=== PATIENT | female | born 1990 | race Caucasian/White ===

== ENCOUNTER 2024-01-23 08:32 | Emergency (ER) | payer OTHER ==
--- OUTSIDE RECORDS SUMMARY | 2024-01-23 08:34 | XMS REPORT | Continuity of Care Document ---
Author Name Unknown Address [address] [facility] [address]. [address] [place] [address] [facility] thconnect Address [address] [facility]. [address] [place] [address] Care Team Providers Care Roof Shingler Name Role Phone NIKHIL CESAR Primary Care Physician Unavailab Shari Garces Attending Clinician Unavail able Stephanie RUIZ Attending Clinician Unavailable Nikhil Cesar Attending Clinician Unavailable Nurse, [facility] Attending Clinician Unadigna Nunes RN, Rosey Patel Attending Clinician Unavailab Gabby Paz RN Attending Clinician UnavailMORENO Chavira Attending Clinician Unavail able Provider, [facility] Attending Clinician Un available Moreno Mooney MD Attending Clinician IVAN JACOBSEN Attending Clinician Unavailable IVAN JACOBSEN Admitting Clinician Unavailable LISE FRANCES Admitting Clinician Unavailable Payers Payer Name Policy Type Policy Number Effective Date Expirati on Date Source [facility] AARP MCR Advantage (HMO-POS) [id number] [facility] Problems Condition Name Condition Details Condition Category Status Onset Date Resolution Date Last Treatment Date Treating Clinician Comments Source [id number] Primary amenorrhea Problem [facility] [id number] Legally blind Problem [facility] [id number] Idiopathic intellectu al disability Problem [facility] [id number] Autism spectrum disorder Problem [facility] Blindness AND/OR vision impairment level (disorder) Blindness and low vision Problem [facility] Adult health examinatio n Well adult exam Problem [facility] [id number] Annual physical exam Problem [facility] Acquired hypothyroi dism Acquired hypothyroi dism Problem [facility] Allergic rhinitis Allergic rhinitis Problem [facility] Decreased vision Decreased vision Problem [facility] Vitamin D deficiency Vitamin D deficiency Problem [facility] [id number] Elevated liver enzymes Problem [facility] [id number] Low HDL (under 40) Problem [facility] No known active problems No known active problems Disease [facility] Allergies, Adverse Reactions, Alerts Allergy Name Allergy Type Status Severity Reaction(s) Onset Date Inactive Date Treating Clinician Comments Source AMOXICIL RAVI-POT CLAVULAN ATE DRUG Active Rash 10-29 00:00: 00 [facility] Amoxicil ravi-Pot Clavulan ate Propensi ty to adverse reaction s Active Rash 10-29 00:00: 00 [facility] amoxicil ravi / clavulan ate amoxicil ravi / clavulan ate Active Unknown [facility] Social History Social Habit Start Date Stop Date Quantity Comments Source History of Tobacco Use [facility] Sex Assigned At [facility] Exposure to SARS-CoV-2 (event) Not sure [facility] Tobacco use and exposure 2020-11-24 00:00:00 2020-11-24 00:00:00 Never used [facility] Smoking Status Start Date Stop Date Source Never Smoker [facility] Medications Ordered Medication Name Filled Medication Name Start Date Stop Date Current Medication? Ordering Clinician Indication Dosage Frequency Signature (SIG) Comments Components Source ondansetron 4 mg tablet 11-24 00:00: 00 Yes [id number] 4mg Take 1 tablet by mouth every 6 (six) hours as needed for Nausea and Vomiting (N/V). [facility] methylPREDN ISolone (MEDROL, JADE,) 4 mg tablets 04-24 00:00: 00 Yes [id number] Take by mouth SEE-INSTRU CTIONS. follow package directions [facility] traMADol 50 mg tablet 04-19 00:00: 00 Yes [id number] 50mg Take 1 tablet by mouth every 6 (six) hours as needed for Pain (scale 4-6) or Pain (scale 7-10). [facility] ciprofloxac in HCl 500 mg tablet 04-19 00:00: 00 Yes [id number] 500mg Take 1 tablet by mouth 2 (two) times daily. [facility] ondansetron (ZOFRAN ODT) 4 mg disintegrat ing tablet 04-19 00:00: 00 Yes [id number] 4mg Take 1 tablet by mouth every 8 (eight) hours as needed for Nausea and Vomiting (N/V) for up to 20 doses. [facility] Levothyroxi ne Sodium 25 MCG Levothyroxi ne Sodium 25 MCG No QD Levothyrox ine Sodium 25 MCG Flintstones Plus Iron - Flintstones Plus Iron - No 1{table t} QD [place] s Plus Iron - Acidophilus Probiotic Blend - Acidophilus Probiotic Blend - No Acidophilu s Probiotic Blend - Euthyrox 25 MCG Euthyrox 25 MCG No QD Euthyrox 25 MCG Immunizations Ordered Immunization Name Filled Immunization Name Date Status Comments Source Afluria single dose Afluria single dose 15:30:00 Completed [facility] Afluria single dose Afluria single dose 15:30:00 Completed [facility] Afluria single dose Afluria single dose 15:30:00 Completed [facility] Afluria single dose Afluria single dose 00:00:00 Completed [facility] Afluria Afluria 2018-03-23 16:19:00 Completed [facility] Afluria Afluria 2018-03-23 16:19:00 Completed [facility] Afluria Afluria 2018-03-23 16:19:00 Completed [facility] Afluria Afluria 2017-05-21 12:54:00 Completed [facility] Afluria Afluria 2017-05-21 12:54:00 Completed [facility] Afluria Afluria 2017-05-21 12:54:00 Completed [facility] Afluria single dose Afluria single dose Unknown Completed [facility] Afluria Afluria Unknown Completed [facility] Afluria Afluria Unknown Completed [facility] Afluria (IIV4) - 3 years and older - SDS - 0.5mL Afluria (IIV4) - 3 years and older - SDS - 0.5mL Unknown Completed [facility] Afluria Afluria Unknown Completed [facility] Afluria Afluria Unknown Completed [facility] Vital Signs Vital Name Observation Time Observation Value Comments S ource height 2023-09-22 10:40:00 61 [in_i] [facility] weight 2023-09-22 10:40:00 126 [lb_av] Comm on [facility] temperature 2023-09-22 10:40:00 98.1 [degF] Com [facility] bmi 2023-09-22 10:40:00 23.8 kg/m2 Comm n [facility] oximetry 2023-09-22 10:40:00 99 % [facility] respiratory rate 2023-09-22 10:40:00 18 /min [facility] blood pressure systolic 2023-09-22 10:40:00 134 mm[Hg] [facility] blood pressure diastolic 2023-09-22 10:40:00 70 mm[Hg] [facility] height 2022-01-28 09:20:00 61.50 [in_i] Com [facility] weight 2022-01-28 09:20:00 121 [lb_av] Comm on [facility] temperature 2022-01-28 09:20:00 98.1 [degF] Com [facility] bmi 2022-01-28 09:20:00 22.49 kg/m2 Comm on [facility] height 2021-05-16 11:00:00 61.50 [in_i] Com [facility] weight 2021-05-16 11:00:00 120 [lb_av] Comm on [facility] temperature 2021-05-16 11:00:00 97.8 [degF] Com [facility] bmi 2021-05-16 11:00:00 22.30 kg/m2 Comm on [facility] oximetry 2021-05-16 11:00:00 100 % [facility] blood pressure systolic 2021-05-16 11:00:00 132 mm[Hg] [facility] blood pressure diastolic 2021-05-16 11:00:00 72 mm[Hg] [facility] height 2021-05-16 11:00:00 61.50 [in_i] Com [facility] weight 2021-05-16 11:00:00 120 [lb_av] Comm on [facility] temperature 2021-05-16 11:00:00 97.8 [degF] Com [facility] bmi 2021-05-16 11:00:00 22.30 kg/m2 Comm [facility] oximetry 2021-05-16 11:00:00 100 % [facility] respiratory rate 2021-05-16 11:00:00 16 /min [facility] blood pressure systolic 2021-05-16 11:00:00 132 mm[Hg] [facility] blood pressure diastolic 2021-05-16 11:00:00 72 mm[Hg] [facility] Systolic blood pressure 2020-11-24 17:04:00 111 mm[Hg] [facility] Diastolic blood pressure 2020-11-24 17:04:00 76 mm[Hg] [facility] Heart rate 2020-11-24 16:58:00 99 /min [facility] Body temperature 2020-11-24 16:58:00 37.17 Ashlee [facility] Respiratory rate 2020-11-24 16:58:00 18 /min [facility] Body height 2020-11-24 16:58:00 160 cm [facility] Body weight 2020-11-24 16:58:00 58.968 kg [facility] BMI 2020-11-24 16:58:00 23.03 kg/m2 [facility] Oxygen saturation in Arterial blood by Pulse oximetry 2020-11-24 16:58:00 100 /min [facility] Procedures Procedure Date / Time Performed Performing Clinicia n Source POCT GRP A STREP (MOLECULAR) 2020-11-24 17:24:00 Arya Lott [facility] Encounters Start Date/Time End Date/Time Encounter Type Admission Type Attending Clinicians Care Facility Care Department Encounter ID Source 2023-09-22 10:55:00 Outpatient Shari [facility] [id number] [facility] 2023-09-20 14:40:00 Outpatient [facility] Stephanie [facility] [id number] [facility] 2023-09-14 16:37:00 Outpatient [facility]MM Stephanie [facility] [id number] [facility] 2022-06-29 14:30:00 Outpatient Umm Stephanie [facility] [id number] [facility] 2022-01-26 07:56:00 Outpatient Nikhil Cesar [facility] [id number] [facility] 2021-05-14 14:21:14 Outpatient Cesar, Na [facility]C ST[facility] [id number] [facility] 2021-05-14 12:11:22 Outpatient Cesar, Na [facility]C ST[facility] [id number] [facility] 2021-05-14 11:49:01 Outpatient Judith Na [facility] ST[facility] [id number] [facility] 2021-05-14 11:44:53 Outpatient Judith, Na [facility] [id number] [facility] 2021-05-14 11:26:17 Outpatient Judith, Na [facility]C ST[facility] [id number] [facility] 2021-05-14 11:17:21 Outpatient Judith Na [facility] ST[facility]C [id number] [facility] 2021-05-14 11:00:46 Outpatient Judith, Na STL[facility]C ST[facility]C [id number] [facility] 2023-09-22 00:00:00 2023-09-22 00:00:00 OFFICE VISIT NEW PT LEVEL 3 [facility]C ST[facility]C [id number] [facility] 2023-09-22 00:00:00 2023-09-22 00:00:00 SUB ANNUAL [facility] VISIT [facility]C STL[facility]C [id number] [facility] 2023-09-14 00:00:00 2023-09-14 00:00:00 (TEL) STLMLC STL[facility]C [id number] [facility] 2022-09-02 10:20:53 2022-09-02 10:20:53 Outpatient SFA SFA [id number] Desmond Beltrán Venu 2022-08-17 00:00:00 2022-08-17 00:00:00 (TEL) STLMLC STL[facility]C [id number] [facility] 2022-01-28 00:00:00 2022-01-28 00:00:00 OFFICE VISIT EST PT LEVEL 3 [facility]C STL[facility]C [id number] [facility] 2022-01-16 00:00:00 2022-01-16 00:00:00 (TEL) STLMLC STL[facility]C [id number] [facility] 2021-05-16 00:00:00 2021-05-16 00:00:00 SUB ANNUAL [facility] VISIT STLMLC STLMLC [id number] [facility] 2021-05-16 00:00:00 2021-05-16 00:00:00 OFFICE VISIT EST PT LEVEL 3 [facility] STLC [id number] [facility] 2020-12-01 00:00:00 2020-12-01 00:00:00 Telephone Nurse, Steven [facility] 1..[id number] [facility] 2020-11-25 00:00:00 2020-11-25 00:00:00 Letter (Out) Rosey Nunes [facility] 1..[id number] [facility] 2020-11-25 00:00:00 2020-11-25 00:00:00 Telephone Gabby Benavides [facility] 1..[id number] [facility] 2020-11-24 12:20:00 2020-11-24 12:20:00 Outpatient R ANGELA MOONEYKIRA [facility] [id number] [facility] 2020-11-24 11:44:50 2020-11-24 12:04:50 [facility] 1..[id number] [facility] 2020-03-28 00:00:00 2020-03-28 00:00:00 Outpatient [facility] [id number] [facility] 2020-01-01 16:00:00 2020-01-01 16:00:00 [facility] [id number] [facility] 2019-10-03 16:00:00 2019-10-03 16:00:00 [facility] [id number] [facility] 2019-07-03 15:00:00 2019-07-03 15:00:00 [facility] [id number] [facility] 2019-05-03 11:40:00 2019-05-03 11:40:00 [facility] [id number] [facility] 2019-04-24 07:26:18 2019-04-24 12:09:00 Emergency X IVAN JACOBSEN [facility] ERT [id number] [facility] 2019-04-19 09:55:43 2019-04-19 15:16:00 Emergency X [facility] ERT [id number] [facility] 2019-04-02 02:26:00 2019-04-02 02:26:00 [facility] [id number] [facility] 2019-03-28 14:40:00 2019-03-28 14:40:00 [facility] [place] [facility] [id number] [facility] Results Test Description Test Time Test Comments Results Result Co mments Source [facility]
[2024-01-23 09:09] LABS: Absolute Eosinophils 0.1 K/uL (0-0.5); Absolute Lymphocytes (CBC) 2.1 K/uL (0.7-4.9); Absolute Monocytes 0.3 K/uL (0.1-1.3); Absolute Neutrophil 2.7 K/uL (1.8-8.0); Basophils % 0.8 % (0-1.3); Eosinophils % 2.4 % (0-4.4); Hematocrit 37.6 % (36.0-45.0); Hemoglobin 12.8 g/dL (12.0-15.0); Lymphocytes % 38.9 % (15.3-44.8); MCH 30.5 pg (27.0-35.0); MCHC 34.2 g/dL (32.0-36.0); MCV 89.2 fL (80-100); MPV 7.9 fL (7.6-11.3); Monocytes % 6.2 % (3.3-12.3); Neutrophils % 51.7 % (41.7-73.7); Platelets 196 thou/uL (152-406); RBC Red Blood Cell Count 4.22 M/uL (3.86-4.86)
[2024-01-23 09:53] LABS: Albumin 4.3 g/dL (3.4-5.0); Albumin/Globulin Ratio 1.2 (1.1-1.8); Bilirubin Total 0.7 mg/dL (0.2-1.0); Globulin 3.7 g/dL (2.3-3.5)
[2024-01-23 10:39] LABS: Specific Gravity 1.023 (1.005-1.030)
[2024-01-23 10:40] LABS: Specific Gravity 1.023 (1.005-1.030); Sqamous Epithelial <5 /HPF (None Seen); Transitional Epithelial <5 /HPF (None Seen); Urine Bacteria None Seen /HPF (<20); Urine Bilirubin NEGATIVE (Negative); Urine Blood 1+ (Negative); Urine Clarity Clear (Clear); Urine Color Light-Yellow (Yellow); Urine Culture Reflex Order NOT NEEDED; Urine Glucose NEGATIVE (Negative); Urine Ketones 3+ (Negative); Urine Microscopic Reflex YN ORDER UMIC; Urine Mucus Slight /HPF (None Seen); Urine Nitrite NEGATIVE (Negative); Urine Protein TRACE (Negative); Urine Urobilinogen Normal (Normal); Urine WBC <5 /HPF (<5)
[2024-01-23] MEDS ORDERED: ONDANSETRON 4 MG/2 ML VIAL ONE (11:05)
--- NOTE | 2024-01-23 11:14 | RAD REPORT ---
EXAMINATION: CT Abdomen Pelvis W Contrast CLINICAL INDICATION: Female, 33 years old. ABD PAIN TECHNIQUE: CT abdomen and pelvis was performed, after the administration of IV contrast, as per [facility] protocol. Axial, sagittal and coronal reconstructions were obtained. One or more of the following dose reduction techniques were used: Automated exposure control, adjustment of the mA and k V according to patient size, and iterative reconstruction. Unless otherwise specified, incidental findings do not require dedicated imaging follow-up. COMPARISON: No prior exam. FINDINGS: LOWER CHEST: The visualized lung bases are clear. LIVER: Normal in size and contour. No focal lesion. BILIARY SYSTEM: Status post cholecystectomy. SPLEEN: Normal size. No focal lesion. PANCREAS: No mass, ductal dilation, or samreen-pancreatic fluid. ADRENALS: Normal; no mass. KIDNEYS: Normal size and contour. No hydronephrosis. URINARY BLADDER: Unremarkable. GASTROINTESTINAL TRACT: Fluid filling of nondistended large bowel. No evidence of free air, significa nt intra-abdominal free fluid, bowel obstruction or abscess. APPENDIX: Normal appendix. LYMPH NODES: No lymphadenopathy. MUSCULOSKELETAL: No acute or suspicious osseous abnormality. ADDITIONAL FINDINGS: None. IMPRESSION: Fluid opacification throughout nondistended large bowel, nonspecific but may relate to diarrheal stat e. No other acute or concerning abnormalities seen in the abdomen or pelvis.
--- NOTE | 2024-01-23 11:28 | EDPHYS ---
Physician Documentation [facility] Name: Jolene Becker Age: 33 yrs Sex: Female : 1990 Arrival Date: 01/23/2024 Time: 08:32 Bed 19 Private MD: ED Physician Aruna Schwab HPI: 01/22 09:04 This 33 yrs old Female presents to ER via Ambulatory with complaints of Abdominal Pain, sp3 Decreased Appetite. 09:04 33-year-old female with history of vision impairment and chronic constipation that sp3 presents to the ED with chief complaint lower abdominal pain for 4 days and emesis initially 3 days ago which has subsided but nausea remains. Last BM also 3 days ago. Patient denies any fever, chest pain, shortness of breath, back pain, LOSS MITIGATION SPECIALIST symptoms, symptoms, or any other signs or symptoms on ROS at this time.. Historical: - Allergies: 11:13 Augmentin; kc6 - Home Meds: 08:43 multivitamin oral [Active]; hb - PMHx: 08:43 vision impaired; hb - PSHx: 08:43 Cholecystectomy; hb - Immunization history:: Adult Immunizations up to date. - Infectious Disease History:: Denies. - Social history:: Smoking status: Patient denies any tobacco usage or history of. ROS: 09:05 Constitutional: Negative for fever, chills, and weight loss, Eyes: Negative for injury, sp3 pain, redness, and discharge, ENT: Negative for injury, pain, and discharge, Neck: Negative for injury, pain, and swelling, Cardiovascular: Negative for chest pain, palpitations, and edema, Respiratory: Negative for shortness of breath, cough, wheezing, and pleuritic chest pain, Back: Negative for injury and pain, MS/Extremity: Negative for injury and deformity, Skin: Negative for injury, rash, and discoloration, Neuro: Negative for headache, weakness, numbness, tingling, and seizure, Psych: Negative for depression, anxiety, suicide ideation, homicidal ideation, and hallucinations, Allergy/Immunology: Negative for hives, rash, and allergies, Endocrine: Negative for neck swelling, polydipsia, polyuria, polyphagia, and marked weight changes, 09:05 All other systems are negative, Exam: 09:06 Constitutional: This is a well developed, well nourished patient who is awake, alert, sp3 and in no acute distress. Head/Face: Normocephalic, atraumatic. Eyes: Pupils equal round and reactive to light, extra-ocular motions intact. Lids and lashes normal. Conjunctiva and sclera are non-icteric and not injected. Cornea within normal limits. Periorbital areas with no swelling, redness, or edema. Neck: Trachea midline, no thyromegaly or masses palpated, and no cervical lymphadenopathy. Supple, full range of motion without nuchal rigidity, or vertebral point tenderness. No Meningismus. Chest/axilla: Normal chest wall appearance and motion. Nontender with no deformity. No lesions are appreciated. Cardiovascular: Regular rate and rhythm with a normal S1 and S2. No gallops, murmurs, or rubs. Normal PMI, no JVD. No pulse deficits. Respiratory: Lungs have equal breath sounds bilaterally, clear to auscultation and percussion. No rales, rhonchi or wheezes noted. No increased work of breathing, no retractions or nasal flaring. Back: No spinal tenderness. No costovertebral tenderness. Full range of motion. Skin: Warm, dry with normal turgor. Normal color with no rashes, no lesions, and no evidence of cellulitis. MS/ Extremity: Pulses equal, no cyanosis. Neurovascular intact. Full, normal range of motion. Neuro: Awake and alert, GCS 15, oriented to person, place, time, and situation. Cranial nerves II-XII grossly intact. Motor strength 5/5 in all extremities. Sensory grossly intact. Cerebellar exam normal. Normal gait. Psych: Awake, alert, with orientation to person, place and time. Behavior, mood, and affect are within normal limits. 09:06 Abdomen/GI: Patient with pain to palpation lower abdomen without peritoneal signs, rebound or guarding. No CVA tenderness present., Vital Signs: 08:41 BP 138 / 82; Pulse 70; Resp 16; Temp 98.6(O); Pulse Ox 97% on R/A; Weight 57.15 kg; hb Height 5 ft. 3 in. ; Pain 8/10; 09:30 BP 114 / 70; Pulse 64; Resp 15 S; Pulse Ox 98% on R/A; kc6 11:50 BP 116 / 76; Pulse 60; Resp 16 S; Pulse Ox 100% on R/A; kc6 08:41 Body Mass Index 22.32 (57.15 kg, 160.02 cm) hb 08:41 Pain Scale: Adult hb MDM: 08:41 Patient medically screened. sp3 09:06 Data reviewed: vital signs, nurses notes, lab test result(s), radiologic studies. ED sp3 course: 33-year-old female with PMH above now with lower abdominal pain. Differential diagnosis includes functional abdominal pain, constipation, bowel obstruction, ileus, UTI/pyelonephritis spectrum, kidney stone, among others. Workup will include CT scan of the abdomen pelvis with IV contrast, laboratory values, UA and general supportive care. Disposition pending workup and patient course.. 11:24 ED course: CT demonstrates diarrheal state. Laboratory values are normal. We will sp3 safely discharge patient home on oral antibiotics and follow-up to PCP.. 01/22 08:47 Order name: CBC with Diff; Complete Time: 10:54 sp3 01/22 08:47 Order name: CMP; Complete Time: 10:54 sp3 01/22 08:47 Order name: Lipase; Complete Time: 10:54 sp3 01/22 08:47 Order name: Test, Urine; Complete Time: 10:54 sp3 01/22 08:47 Order name: Urinalysis w/ reflexes; Complete Time: 10:54 sp3 01/22 08:47 Order name: CT Abd/Pelvis - IV Contrast Only; Complete Time: 11:22 sp3 01/22 08:47 Order name: IV Saline Lock; Complete Time: 08:58 sp3 01/22 08:47 Order name: Labs collected and sent; Complete Time: 08:58 sp3 Administered Medications: 11:12 Drug: Ondansetron IVP 4 mg IVP once; over 2 minutes Route: IVP; Site: right antecubital;kc6 11:50 Follow up: Response: No adverse reaction kc6 Disposition Summary: 01/23/24 11:27 Discharge Ordered Notes: Location: Home sp3 Condition: Stable sp3 Diagnosis - Gastroenteritis, abdominal pain sp3 Followup: sp3 - With: Private Physician - When: Upon discharge from the Emergency Department - Reason: Continuance of care Discharge Instructions: - Discharge Summary Sheet sp3 - Abdominal Pain, Adult sp3 Forms: - Medication Reconciliation Form sp3 - Antibiotic Education sp3 - Prescription Opioid Use sp3 - Patient Portal Instructions sp3 - Leadership Thank You Letter sp3 Prescriptions: - Cipro 500 mg Oral Tablet - take 1 tablet ORAL route every 12 hours for 10 days; 20 tablet; Refills: 0, sp3 Product Selection Permitted - Flagyl 500 mg Oral Tablet - take 1 tablet ORAL route every 6 hours for 10 days; 40 tablet; Refills: 0, sp3 Product Selection Permitted Signatures: Dispatcher [employer] Alisson Raymundo RN RN Aruna Schwab MD MD sp3 Kita Smith RN RN kc6 Corrections: (The following items were deleted from the chart) 11:13 08:43 Allergies: No Known Allergies; adam6
--- NOTE | 2024-01-23 11:28 | ER ---
Nurse's Notes [facility] Name: Jolene Becker Age: 33 yrs Sex: Female : 1990 Arrival Date: 01/23/2024 Time: 08:32 Bed 19 Private MD: Diagnosis: Gastroenteritis, abdominal pain Presentation: 01/22 08:41 Chief complaint: Nausea and lower abdominal pain x 5 days. Coronavirus screen: At this hb time, the client does not indicate any symptoms associated with coronavirus-19. Ebola Screen: No symptoms or risks identified at this time. Initial Sepsis Screen: Does the patient meet any 2 criteria? No. Patient's initial sepsis screen is negative. Does the patient have a suspected source of infection? No. Patient's initial sepsis screen is negative. Risk Assessment: Do you want to hurt yourself or someone else? Patient reports no desire to harm self or others. Onset of symptoms was January 19, 2024. 08:41 Method Of Arrival: Ambulatory hb 08:41 Acuity: EVIE 3 hb Historical: - Allergies: 11:13 Augmentin; kc6 - Home Meds: 08:43 multivitamin oral [Active]; hb - PMHx: 08:43 vision impaired; hb - PSHx: 08:43 Cholecystectomy; hb - Immunization history:: Adult Immunizations up to date. - Infectious Disease History:: Denies. - Social history:: Smoking status: Patient denies any tobacco usage or history of. Screenin:49 [facility] ED Fall Risk Assessment (Adult) History of falling in the last 3 months, kc6 including since admission No falls in past 3 months (0 pts) Confusion or Disorientation No (0 pts) Intoxicated or Sedated No (0 pts) Impaired Gait No (0 pts) Mobility Assist Device Used No (0 pt) Altered Elimination No (0 pt) Score/Fall Risk Level 0 - 2 = Low Risk Oriented to surroundings. Abuse screen: Denies threats or abuse. Denies injuries from another. Nutritional screening: No deficits noted. Tuberculosis screening: No symptoms or risk factors identified. Assessment: 08:48 General: Appears in no apparent distress. comfortable, well groomed, well developed, kc6 Behavior is calm, cooperative, appropriate for age. Pain: Complains of pain in right lower quadrant and left lower quadrant. Neuro: Level of Consciousness is awake, alert, obeys commands, Oriented to person, place, time, situation, Appropriate for age. Cardiovascular: Capillary refill < 3 seconds. Respiratory: Airway is patent Trachea midline Respiratory effort is even, unlabored, Respiratory pattern is regular, symmetrical. GI: Abdomen is flat, non-distended, Bowel sounds present X 4 quads. Abd is soft and non tender X 4 quads. Reports lower abdominal pain, constipation, nausea, vomiting, Patient currently denies diarrhea. : No signs and/or symptoms were reported regarding the genitourinary system. EENT: No signs and/or symptoms were reported regarding the EENT system. Derm: No signs and/or symptoms reported regarding the dermatologic system. Skin is intact, is healthy with good turgor, Skin is pink, warm \T\ dry. Musculoskeletal: No signs and/or symptoms reported regarding the musculoskeletal system. Circulation, motion, and sensation intact. Capillary refill < 3 seconds, Range of motion: intact in all extremities. 09:30 Reassessment: Patient appears in no apparent distress at this time. No changes from kc6 previously documented assessment. Patient and/or family updated on plan of care and expected duration. Pain level reassessed. Patient is alert, oriented x 3, equal unlabored respirations, skin warm/dry/pink. 10:13 Reassessment: spoke with Nichole in the lab. states she did not have enough urine to run kc6 the requested samples. asking for a recollect at this time. 10:27 Reassessment: Patient appears in no apparent distress at this time. No changes from kc6 previously documented assessment. Patient and/or family updated on plan of care and expected duration. Pain level reassessed. Patient is alert, oriented x 3, equal unlabored respirations, skin warm/dry/pink. 11:12 Reassessment: pt returned from CT crying, appears anxious and reports nausea. made kc6 aware. Vital Signs: 08:41 BP 138 / 82; Pulse 70; Resp 16; Temp 98.6(O); Pulse Ox 97% on R/A; Weight 57.15 kg; hb Height 5 ft. 3 in. ; Pain 8/10; 09:30 BP 114 / 70; Pulse 64; Resp 15 S; Pulse Ox 98% on R/A; kc6 11:50 BP 116 / 76; Pulse 60; Resp 16 S; Pulse Ox 100% on R/A; kc6 08:41 Body Mass Index 22.32 (57.15 kg, 160.02 cm) hb 08:41 Pain Scale: Adult hb ED Course: 08:35 Patient arrived in ED. im 08:41 Aruna Schwab MD is Attending Physician. sp3 08:41 Kita Smith RN is Primary Nurse. kc6 08:43 Triage completed. hb 08:44 Arm band placed on. hb 08:49 Patient has correct armband on for positive identification. Bed in low position. Call kc6 light in reach. Side rails up X2. Adult w/ patient. Pulse ox on. NIBP on. Door closed. Noise minimized. Lights dimmed. Warm blanket given. Pillow given. 08:49 Provided Education on: use of call light and surroundings. kc6 08:49 Patient maintains SpO2 saturation greater than 95% on room air. kc6 08:55 Test, Urine Sent. kc6 08:55 Urinalysis w/ reflexes Sent. kc6 09:02 Inserted saline lock: 22 gauge in right antecubital area, using aseptic technique. cc6 Blood collected. Flushed with 10 mL NS. 09:50 Radiology exam delayed due to test not completed at this time. mw3 10:27 Assisted to bathroom. kc6 10:56 CT Abd/Pelvis - IV Contrast Only In Process Unspecified. EDMS 11:50 No provider procedures requiring assistance completed. IV discontinued, intact, kc6 bleeding controlled, No redness/swelling at site. Pressure dressing applied. Administered Medications: 11:12 Drug: Ondansetron IVP 4 mg IVP once; over 2 minutes Route: IVP; Site: right antecubital;kc6 11:50 Follow up: Response: No adverse reaction kc6 Medication: 11:50 VIS not applicable for this client. kc6 Outcome: 11:27 Discharge ordered by . sp3 11:50 Discharged to home ambulatory, with family, kc6 11:50 Condition: good 11:50 Discharge instructions given to patient, family, Instructed on discharge instructions, follow up and referral plans. medication usage, Demonstrated understanding of instructions, follow-up care, medications, Prescriptions given X 2, 11:50 Patient left the ED. kc6 Signatures: Dispatcher Hyglos EDAR Alisson Redmond RN RN hb Elana Gilman mw3 Aruna Schwab MD MD sp3 Kita Smith RN RN kc6 Sayda Hood Cassandra cc6 Corrections: (The following items were deleted from the chart) 11:13 08:43 Allergies: No Known Allergies; kc6
[2024-01-23 11:56] VITALS: TEMP 98.6
[2024-01-23 11:59] VITALS: BP 116/76; O2SAT 100
== END 2024-01-23 11:50 | disposition home or self-care (01) ==
LOC: ER 08:32
DX: K52.9 Noninfective gastroenteritis and colitis, unspecified (principal)
CPT/HCPCS: 85025; 81001; 36415; 81025; 83690; 80053; 74177; 96374; 99284; Q9967; J2405